=== PATIENT | female | born 1985 | race Caucasian/White ===

== ENCOUNTER 2023-02-11 09:15 | Outpatient (CLI) | payer BC, SELFPAY | END 2023-02-11 09:16 | disposition home or self-care (01) | PROVIDERS: Visit Provider Obstetrics & Gynecology | DX: N93.9 Abnormal uterine and vaginal bleeding, unspecified (principal) | CPT/HCPCS: 83540 ==

== ENCOUNTER 2023-04-19 06:02 | Day surgery (SDC) | payer BC, SELFPAY ==
[2023-04-19] MEDS: LACTATED RINGERS 1000 ML 1,000 ML 100 ML IV (06:10)
[2023-04-19] MEDS: SODIUM CHLORIDE 0.9 % (FLUSH) 10 ML SYRINGE IVF (06:19)
[2023-04-19 06:21] VITALS: BP 123/82; PULSE 83; RESP 16; TEMP 36.6; O2SAT 97; BMI 17.8
[2023-04-19 06:35] LABS: Ur HCG Qualitative* Negative (Negative)
[2023-04-19 07:01] LABS: Hemoglobin* 13.6 gm/dL (12.0-16.0)
--- NOTE | 2023-04-19 07:17 | PM.GYNHPPRM ---
SPECIAL EDUCATION PARA PROFESSIONAL: H&P: HPI Surgical History of Present Illness Time Seen by Provider: 07:05 Date Seen: 04/19/23 Last H&P: History & Physical 04/19/23 07:17 Narrative: Farzaneh Flores is a 37 year old female seen in preop prior to cold knife conization in the setting of high-grade cervical dysplasia status post LEEP with positive margins. She has been extensively counseled on the risks, benefits and alternatives of the procedure - where she certainly could proceed with repeat Pap/HPV testing in 6 months as an alternative. Risks of the procedure were again reviewed this morning, including bleeding, infection, damage to surrounding structures. I explained that I will try to avoid her IUD strings, but if they are compromised would recommend we exchanged this. She wishes to proceed with a Mirena IUD for menstrual suppression if we need to replace her IUD. Again affirmed that only if her Bartholin's gland is obstructing view of her cervix would be intervene on this, per Farzaneh's preference. All questions answered. PFSH PFSH Social History Smoking Status: Never smoker How often do you have a drink containing alcohol: never AUDIT-C Alcohol total score: 0 Non-prescribed substance use: denies use Caffeine: Yes Are you using contraception or practicing any form of control: No Meds Home Medications and Allergies Home Medications Medication Instructions Recorded Confirmed Type escitalopram oxalate 10 mg tablet 10 mg PO DAILY 01/14/23 04/08/23 History valacyclovir 500 mg tablet 500 mg PO BID 01/14/23 04/08/23 History Allergies Allergy/AdvReac Type Severity Reaction Status Date / Time No Known Drug Allergies Allergy Verified 04/19/23 06:12 SPECIAL EDUCATION PARA PROFESSIONAL - Exam Physical Exam: Vital signs: Temp Pulse Resp BP Pulse Ox O2 Del Method 97.9 F 83 16 123/82 97 Room Air 04/19/23 06:21 04/19/23 06:21 04/19/23 06:21 04/19/23 06:21 04/19/23 06:21 04/19/23 06:21 Narrative: Physical exam: General: No acute distress Psych: Alert and oriented x3, full affect Heart: Regular rate and rhythm, no murmur rub or gallop Lungs: Clear to auscultation bilaterally Assessment and Plan Assessment and plan (1) Cervical dysplasia: Status: Acute (2) S/P LEEP (loop electrosurgical excision procedure): Status: Acute Plan Ms. Flores is a 37-year-old G0 seen in preop prior to conization in the setting of high-grade cervical dysplasia with positive margins on LEEP. We again reviewed the procedure in detail, risks benefits and alternatives. - Plan to proceed with cold knife conizations today. Specimen was to be sent for pathologic evaluation. - Preop labs reviewed and are within normal limits. Negative UPT. - We discussed strict bleeding precautions, where she had an episode of syncope and heavy bleeding following her LEEP. Advised her that this is too much bleeding, if this were to occur please call and/or present to the emergency department. - Discussed intervention on her Bartholin gland cyst only if this is interfering with colonization - Plan if her IUD is compromised we would exchanged this for a Mirena IUD - All questions answered.
[2023-04-19] MEDS: LIDOCAINE 1% MDV 20 ML INJECTION (07:40)
[2023-04-19] MEDS: 0.9 % SODIUM CHLORIDE 100 ml INJECTION (07:42)
[2023-04-19] MEDS: VASOPRESSIN 20 UNIT/ML INJ 10 UNIT INJECTION (07:42)
[2023-04-19] MEDS: FERRIC SUBSULFATE 8 GM VIAL 1 VIAL TOPICAL (07:47)
--- NOTE | 2023-04-19 07:55 | W.ANESCHARGE ---
Anesthesia Charges Start Date/Time Anesthesia Start Date: 04/19/23 Anesthesia Start Time: 07:15 Stop Date/Time Anesthesia Stop Date: 04/19/23 Anesthesia Stop Time: 08:18
--- NOTE | 2023-04-19 08:14 | W.PM.GYNPROC ---
Procedure Note Time Seen by Provider: 08:00 Date of procedure: 04/19/23 Pre-op diagnosis: High grade cervical dysplasia Post-op diagnosis: same Procedure: Cervical conization, IUD removal and IUD insertion Anesthesia: MAC and local Complications: None Surgeon: Maria Esther Casiano MD Estimated blood loss (mL): 25 IV fluids (mL): 1,000 Pathology: specimen obtained, sent to pathology Condition: stable Disposition: same day Findings: Interval decrease in size of right Bartholin gland cyst, no evidence of infection Cervix appears within normal limits, no discrete lesion Small margin of decreased Lugol's uptake at the external os, otherwise positive Lugol's uptake Procedure Description: The patient was brought to the operating room and, after induction of MAC anesthesia placed in the dorsal lithotomy position. She was prepped and draped in the usual fashion. A surgical pause was performed. Lugol's solution was applied to the cervix, where the vast majority of the ectocervix had positive Lugol's staining. A small margin at the external os was noted to have decreased uptake. A tenaculum was applied at the anterior cervical margin, 5cc of 1%lidocaine was injected at 4 and 8 o'clock as a paracervical block. I then assessed the length and angle of the endocervical canal, noted to be 3.5cm in length. We placed hemostatic sutures with 0 vicryl at 3 and 9 o'clock at at the cervicovaginal junction. Dilute vasopressin (20U in 100mL saline) was injected into the cervical stroma at 2, 4, 8 and 10 o'clock - total of 8cc. An 11 blade was utilize to them perform a cold knife conization 1cm in depth circumferentially around the ectocervix, then a Kirsten was applied at 12 o'clock and the specimen was manipulated to free the specimen where blade was directed at a 45 degree angle toward the endocervix. IUD strings were noted to have been transected during conization. Specimen was removed, tagged with vicryl at the 12 o'clock position. Small curved hemostat was passed through the cervical os, distal end of her ParaGard IUD was grasped and removed intact. Hemostasis was achieved with roller ball cautery on the cone bed. Uterine sound was passed to a sounding depth of 7 cm, ensuring patency of the endocervical os. Excellent hemostasis was again confirmed. Mirena IUD was loaded and inserted in the usual fashion. Monsel's solution was applied to the cone bed. IUD strings were trimmed at 3 cm. Excellent hemostasis was again noted, and the distal end of hemostatic sutures were cut. Patient was taken to the recovery room in good condition. Surgical debriefing performed - QBL of 25 mLs, IV fluids include 1 L crystalloid, no apparent complications from surgery. Specimen sent for pathologic evaluation, cervical conization with stitch at 12 o'clock.
[2023-04-19 08:17] VITALS: BP 121/82; PULSE 76; RESP 16; TEMP 36.2; O2SAT 97
[2023-04-19 08:31] VITALS: BP 112/76; PULSE 85; RESP 16; O2SAT 97
--- NOTE | 2023-04-19 08:39 | W.ANESCHARGE ---
Anesthesia Charges Start Date/Time Anesthesia Start Date: 04/19/23 Anesthesia Start Time: 07:15 Stop Date/Time Anesthesia Stop Date: 04/19/23 Anesthesia Stop Time: 08:18
[2023-04-19 08:45] VITALS: BP 116/68; PULSE 77; RESP 16; O2SAT 97
[2023-04-19] MEDS: OXYCODONE 5 MG TABLET PO (08:59)
[2023-04-19 09:00] VITALS: BP 118/77; PULSE 83; RESP 16; O2SAT 97
== END 2023-04-19 09:38 | disposition home or self-care (01) ==
PROVIDERS: Visit Provider Obstetrics & Gynecology
PROC: 0UBC7ZZ Excision of Cervix, Via Natural or Artificial Opening (ICD-10-PCS; CPT 57520; principal; 2023-04-19 07:15)
DX: R87.613 High grade squamous intraepithelial lesion on cytologic smear of cervix (HGSIL) (principal); Z30.433 Encounter for removal and reinsertion of intrauterine contraceptive device; N75.0 Cyst of Bartholin's gland
CPT/HCPCS: 57520; 58301; 58300; 00940; 36415; 81025; 85018; 86850; 86900; 86901; 88307; A9270; J1100; J1885; J2250; J2405; J2704; J3010; J7120; J7298

== ENCOUNTER 2025-03-14 15:40 | Outpatient (CLI) | payer BC, SELFPAY ==
[2025-03-20 11:01] LABS: Pap Test Digital Imaging Done
[2025-03-21 14:09] LABS: HPV Source Cervical
== END 2025-03-14 15:41 | disposition home or self-care (01) ==
PROVIDERS: Visit Provider Obstetrics & Gynecology
DX: Z12.4 Encounter for screening for malignant neoplasm of cervix (principal)
CPT/HCPCS: 87624; 87625; 88141; 88142; 88175